=== PATIENT | male | born 1990 | race Caucasian/White ===

== ENCOUNTER → 2021-07-31 | Outpatient (CLI) | payer OTHER ==
[~2021-07-31] VITALS: Ht 180.3 cm; Wt 90.7 kg
== END ==
LOC: EROP 15:00
DX: U07.1 COVID-19 (principal); J45.909 Unspecified asthma, uncomplicated
CPT/HCPCS: 96365; U0002

== ENCOUNTER 2022-07-20 17:48 | Emergency (ER) | payer SELFPAY ==
[2022-07-20] MEDS ORDERED: PAXLOVID 300-11 EACH PO (19:03)
[2022-07-20] MEDS ORDERED: IBUPROFEN800 MG PO (19:03)
== END 2022-07-20 19:26 | disposition home or self-care (01) ==
LOC: ER1 17:48
DX: U07.1 COVID-19 (principal); J45.909 Unspecified asthma, uncomplicated
CPT/HCPCS: 99283